=== PATIENT | male | born 1960 | race Caucasian/White ===

== ENCOUNTER → 2016-09-09 | Outpatient (CLI) | payer OTHER ==
[2016-09-09 15:55] LABS: BASOPHIL % 0.2 % (0.0-0.2); EOSINOPHIL # 0.1 10^3/uL (0.0-0.2); EOSINOPHIL % 0.5 % (0.0-5.0); HEMOGLOBIN 14.4 g/dL (13.9-16.3); LYMPHOCYTES # 2.3 10^3/uL (1.0-4.8); LYMPHOCYTES % 19.2 % (24.0-44.0); MEAN CELL HGB 32.1 pg (26-34); MEAN CORP VOLUME 89.1 fL (78-100); MEAN PLATELET VOLUME 10.7 fL (7.8-11.0); MONOCYTES # 1.3 10^3/uL (0.3-0.8); MONOCYTES % 10.4 % (5.0-12.0); NEUTROPHIL # 8.5 10^3/uL (1.8-7.7); NEUTROPHILS % 69.5 % (41.0-85.0); RED CELL DISTRIBUTION WIDTH 12.8 % (11.5-14.5); WHITE BLOOD CELL 12.2 10^3/uL (4.5-11.0)
--- NOTE | 2016-09-09 15:56 | DIREP ---
PROCEDURE:XRAY ABDOMEN SINGLE VW COMPARISON:None. INDICATIONS:R10.13 EPIGASTRIC PAIN FINDINGS: BOWEL GAS PATTERN:Normal. CALCIFICATIONS:None significant. LUNG BASES:Clear. BONES:Small marginal acetabular osteophytes with moderate hip joint space narrowing. OTHER:No additional findings. CONCLUSION: 1. Moderate amount of stool in the colon, correlate for constipation. 2. Osseous degenerative changes. Dictated by: Manjeet Booker M.D. on 09/09/2016 at 03:54 PM
[2016-09-09 16:17] LABS: CALCIUM 8.7 mg/dL (8.4-10.5); CARBON DIOXIDE 25.7 mmol/L (20.0-32)
== END | disposition home or self-care (01) ==
LOC: RAD 15:29
PROVIDERS: ATTEND Nurse Practitioner Family
DX: R10.13 Epigastric pain (principal); M16.10 Unilateral primary osteoarthritis, unspecified hip
CPT/HCPCS: 36415; 74000; 80053; 85025; 86677